=== PATIENT | male | born 1930 | race Caucasian/White ===

== ENCOUNTER 2017-08-04 17:46 | Observation (INO) | payer MEDICARE, MEDICAID ==
[2017-08-04 18:38] LABS: #Eosinphils 0.2 thou/uL (0.0-0.7); #Lymphocytes 0.7 thou/uL (1.20-3.40); #Monocytes 0.8 thou/uL (0.11-0.59); #Neutrophils 5.7 thou/uL (1.40-6.50); %Basophils 0.2 % (0.0-1.0); %Eosinophils 2.9 % (0.0-10.0); %Lymphocytes 9.8 % (21.0-51.0); %Monocytes 10.4 % (0.0-10.0); Hematocrit 38.6 % (42.0-52.0); Mean Platelet Volume 6.3 fL (7.4-10.4); Red Blood Cell (RBC) Count 3.51 mill/uL (4.70-6.10); White Blood Cell (WBC) Count 7.5 thou/uL (4.8-10.8)
[2017-08-04 18:49] LABS: Macrocytosis MODERATE=16-30 cells (100X) (0-5/hpf); Polychromasia SLIGHT = 2-3 cells (100X) (0-2/hpf)
[2017-08-04 19:00] LABS: ALT (SGPT) 26 U/L (8-55); AST (SGOT) 30 U/L (5-34); Alkaline Phosphatase 88 U/L (40-150); Anion Gap 13 mmol/L (10-20); BUN (Urea Nitrogen) 61 mg/dL (8.4-25.7); Bilirubin, Total 0.5 mg/dL (0.2-1.2); CK (CPK) 914 U/L (30-200); Calc. Creatinine Clearance 0 mL/min (70-130); Calcium 9.5 mg/dL (7.8-10.44); Carbon Dioxide 30 mmol/L (23-31); Chloride 98 mmol/L (98-107); Estimated GFR-MDRD 21; Globulin 4.8 g/dL (2.4-3.5); Protein, Total 8.9 g/dL (5.8-8.1)
[2017-08-04 19:00] LABS: Bilirubin Negative (Negative); Blood, Urine Moderate (Negative); Glucose, Urine (Dipstick) Negative (Negative); Ketone, Urine Negative (Negative); Nitrite Positive (Negative); Protein, Urine (Dipstick) 30 mg/dL (Neg-Trace)
[2017-08-04 19:03] LABS: Bacteria/HPF 4+ HPF (None Seen); RBC/HPF 21-50 HPF (0-3); Squamous Epithelial 0-3 HPF (0-3)
[2017-08-04 19:06] LABS: Troponin I 0.028 ng/mL (< 0.028)
[2017-08-04 19:15] LABS: Hyaline Casts/LPF 0-3 HYALINE CAST LPF (0-3 Hyaline)
--- NOTE | 2017-08-04 19:30 | RAD ---
RADIOGRAPH OF CHEST SINGLE VIEW: Comparison: 02-04-17 History: Emergency exam, edema, progressive. FINDINGS: The cardiac silhouette is prominent in size, accentuated by portable technique and is grossly stable to prior exam. There is mild prominence of the pulmonary vasculature. No lobar consolidation, signifi cant effusion or discrete pneumothorax. Vascular calcification and osseous degenerative change presen t. IMPRESSION: Findings which indicate CHF, grossly stable. POS: C
[2017-08-05 01:08] LABS: PTT 30.7 SEC (22.9-36.1); Prothrombin Time 14.4 SEC (12.0-14.7)
[2017-08-05] MEDS ORDERED: Heparin 25,000 units/D5W 500 ML ONE (01:20)
[2017-08-05] MEDS ORDERED: Heparin 5,000 UNITS/ML VIAL ONE ×2 (01:20→01:27)
[2017-08-05 02:40] VITALS: BMI 26.9
[2017-08-05] MEDS ORDERED: Ondansetron ODT 4 MG TAB SL PRN (02:50)
[2017-08-05] MEDS ORDERED: Ondansetron HCl/PF 4 MG/2 ML Vial IVP PRN (02:50)
[2017-08-05] MEDS ORDERED: Sodium Chloride 0.9% 1,000 ML IV SCH (02:50)
[2017-08-05] MEDS ORDERED: Heparin 10,000 UNITS/ 10 ML VIAL SLOW IVP SCH ×2 (03:00→07:45)
[2017-08-05] MEDS ORDERED: Heparin 25,000 units/D5W 500 ML IV SCH ×2 (03:00→07:45)
[2017-08-05] MEDS ORDERED: Dextrose 50% Abboject 50 ML SYRINGE IVP PRN (07:48)
[2017-08-05] MEDS ORDERED: Insulin Regular 300 UNITS/3 ML VIAL SC PRN (07:48)
[2017-08-05] MEDS ORDERED: Dextrose 5% in Water 1,000 ML IV PRN (07:48)
--- NOTE | 2017-08-05 08:00 | ULT ---
PRELIMINARY REPORT/[facility]/EMERGENCY AFTER HOURS PROCEDURE: Addendum created by Ben Guerrero MD on 08/05/2017 12:30 AM Central Time ([place] & [place]) THIS REPORT CONTAINS FINDINGS THAT MAY BE CRITICAL TO PATIENT CARE. The findings were verbally commun icated via telephone conference with KHANG ANTONIO at 12:30 AM DIXON[employer] OPERATOR on 08/05/2017. The findings were ackn owledged and understood. Initial Report created on 08/05/2017 12:29 AM Central Time ([place] & [place]) EXAM: US Duplex Bilateral Lower Extremity Veins CLINICAL HISTORY: 86 years old, male; bilateral lower extremity pain, edema, and redness: HX DVT BLE - per patient TECHNIQUE: Real-time ultrasound scan of the veins of the bilateral lower extremities with color Doppler flow, sp ectral waveform analysis and compression. COMPARISON: No relevant prior studies available. FINDINGS: Right deep veins: Deep venous thrombosis of the right common femoral vein and proximal / mid right reagan perficial femoral vein. Right superficial veins: Unremarkable. No thrombus in the visualized right great saphenous vein. Left deep veins: Deep venous thrombosis of the left common femoral vein and entire left superficial f emoral vein. Left superficial veins: Unremarkable. No thrombus in the visualized left great saphenous vein. Soft tissues: No acute findings. No popliteal cyst. IMPRESSION: 1. Deep venous thrombosis of the right common femoral vein and proximal / mid right superficial femor al vein. 2. Deep venous thrombosis of the left common femoral vein and entire left superficial femoral vein. Thank you for allowing us to participate in the care of your patient. Dictated and Authenticated by: Ben Guerrero MD 08/05/2017 12:29 AM Central Time ([place] & [place]) FINAL REPORT EMERGENCY AFTER HOURS BILATERAL LOWER EXTREMITY VENOUS DOPPLER WITH SPECTRAL ANALYSIS AND COLOR FLOW EVALUATION: Date: 08/04/17 HISTORY: Bilateral lower extremity pain, edema, and redness. FINDINGS: 1. Near occlusive deep vein thrombosis of the right common femoral vein, as well as the proximal and mid right superficial femoral veins. 2. Near occlusive deep vein thrombosis of the left common femoral vein, as well as the entire left s uperficial femoral vein. 3. There is normal flow and lumen compressibility in the bilateral lower extremity popliteal veins a nd posterior tibial veins, as well as visualized superficial veins. Normal lumen compressibility and flow is seen within the distal right superficial femoral vein. 4. Subcutaneous edema bilateral lower extremities. Findings are in agreement with the preliminary report by Manjinder. POS: WAYNE
[2017-08-05] MEDS: Gabapentin 300 MG CAP PO SCH ×2 (08:10→20:50)
[2017-08-05] MEDS: Cefdinir 300 MG CAP PO SCH ×2 (08:10→20:50)
--- NOTE | 2017-08-05 08:17 | HP ---
DATE OF INITIAL OBSERVATION: 08/05/2017 CHIEF COMPLAINT: Bilateral lower extremity deep vein thrombosis, urinary tract infection, and lower extremity cellulitis. HISTORY OF PRESENT ILLNESS: The patient is an 86-year-old [facility] patient at [facility], who was noted to have erythema, heat, and tenderness in his lower extremities along with some mild swelling. He was sent to the emergency room for further evaluation. There he was noted by ultrasound to have bilateral DVT. Because of the recurrent nature of this, an IVC filter was placed in 02/2016. He chao s currently been on 1 aspirin daily 81 mg to prevent this as well as Eliquis 2.5. He cannot take a s tronger anticoagulation due to recurrent hematuria, and his age as well as diminished renal function. At the time of my evaluation, he is an alert, responsive, no complaints of pain. 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 He is dysarthric. He has a history of [place] x2 with coronary artery disease, atrial fibrillation, type 2 diabetes, hyperlipidemia, high cholesterol, hypertension. He has had CHF in the past. 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 He has BPH and dementia. PAST SURGICAL HISTORY: Include the aforementioned IVC filter placement in 02/2016, bilateral eye pricilla mookie, and prostatectomy. He maintains a suprapubic catheter, which also maintains chronic bacterial contamination and chronic UTI/colonization. He also has peripheral neuropathy that has responded wel l to gabapentin, arthritis, constipation. ALLERGIES: He has no known drug allergies. MEDICATIONS ON ADMISSION: Include Namenda 10 mg in the morning and 5 mg in the evening, atorvastatin 20 mg at bedtime, aspirin 81 mg daily, Lasix 40 mg 3 times a day, Levemir 20 units subcutaneous a.m. , Imdur 30 mg daily, aspirin 81 mg daily, Humalog sliding scale, Eliquis 2.5 mg daily, Aldactone 100 mg daily. REVIEW OF SYSTEMS: At the time of observation is difficult to obtain due to the patient's dementia a nd he is very hard of hearing. but there has been no fever, vomiting, diarrhea. HEENT: No complaint s of headache or head trauma. Chest: No complaints of chest pain or shortness of breath. Heart: N o complaints of palpitations or chest pain. Gastrointestinal: As previously mentioned, no evidence of nausea, vomiting, diarrhea. Genitourinary: Has a urostomy and maintains chronic colonization of bacteria, but denies pain there. Musculoskeletal: Normally with 4+ lower extremity edema. This has been improved, but he does have a red rash in his lower legs, CVA. Neurological: He is left with l eft-sided hemiparesis and weakness. PHYSICAL EXAMINATION: At the time of admission, VITAL SIGNS: Blood pressure 134/84, pulse 76, respirations 16, temperature 98.4. Pain scale, I am u nable to rate that since the patient is not cooperative. O2 sat 100%. GENERAL: This is an elderly male, alert, responsive, confused, hard of hearing, and slurre d speech. HEENT: Normocephalic and atraumatic. Pupils equal, round, and reactive to light with arcus senilis bilaterally. TMs, nares are clear. Pharynx is clear with moist membranes. CHEST: Clear to auscultation. HEART: Regular rate and rhythm. ABDOMEN: Soft, nontender, unable to appreciate organomegaly. GENITOURINARY: With urostomy tube draining normally. EXTREMITIES: Showing the beginning of edema mid thigh and going downward with erythema and mild swel ling of the left lower extremity greater than the right, warm to touch, nontender. SKIN: Without other acute lesions. NEUROLOGIC: Cranial nerves are intact. Unable to test gait and cerebellar function. Sensory exam i s grossly intact. Mental status is abnormal with slurred speech, hard of hearing, and illogical comm ents. LABORATORY DATA: The lab work on admission showed sodium 136, potassium 5.4, chloride 98, CO2 is 30, BUN 61, creatinine 2.8 with a GFR 21, glucose 188, calcium 9.5. Liver functions normal. CK 914. C K-MB elevated at 7.4. Troponin I's are negative. BNP slightly elevated at 214. The WBC 7.5, hemogl obin 12.5, hematocrit 38.6, platelets at 242. The urinalysis shows 21-50 rbcs, too numerous to count wbcs. ASSESSMENT: 1. Lower extremity cellulitis, mild. 2. Bilateral deep vein thrombosis per ultrasound and surprising due to patient's bedridden nature, a nticipated with IVC filter placement. 3. Chronic urinary tract infection/colonization. 4. Chronic kidney disease. 5. Dementia. 6. Status post cerebrovascular accident. PLAN: Await cultures on the urine. Continue his aspirin and Eliquis. Begin antibiotics for the low er extremity cellulitis. Serially reevaluate the patient, follow his electrolytes, and probable retu rn to penitentiary soon.
[2017-08-05] MEDS ORDERED: Apixaban 5 MG TAB PO SCH (09:00)
[2017-08-05] MEDS: Insulin Detemir 100 UNITS/ML 20 UNITS in Pre-Filled Syringe 1 EACH SC SCH (10:10)
[2017-08-05] MEDS: Furosemide 100 MG in Sodium Chloride 0.9% 100 ML IVPB SCH (10:10)
[2017-08-05] MEDS: Spironolactone 100 MG TAB PO SCH (10:11)
[2017-08-05] MEDS ORDERED: Atorvastatin Calcium 20 MG TAB PO SCH (21:00)
[2017-08-06] MEDS ORDERED: Dextrose 5% in Water 1,000 ML IV SCH (03:30)
[2017-08-06] MEDS: Furosemide 100 MG in Sodium Chloride 0.9% 100 ML IVPB SCH (04:18)
[2017-08-06 04:31] LABS: #Eosinphils 0.3 thou/uL (0.0-0.7); #Lymphocytes 0.7 thou/uL (1.20-3.40); #Monocytes 0.8 thou/uL (0.11-0.59); #Neutrophils 6.2 thou/uL (1.40-6.50); %Basophils 0.2 % (0.0-1.0); %Eosinophils 3.2 % (0.0-10.0); %Lymphocytes 8.7 % (21.0-51.0); %Monocytes 9.6 % (0.0-10.0); Hematocrit 35.7 % (42.0-52.0); Mean Platelet Volume 6.8 fL (7.4-10.4); Red Blood Cell (RBC) Count 3.26 mill/uL (4.70-6.10); White Blood Cell (WBC) Count 7.9 thou/uL (4.8-10.8)
[2017-08-06 04:43] LABS: Anion Gap 15 mmol/L (10-20); BUN (Urea Nitrogen) 63 mg/dL (8.4-25.7); Calc. Creatinine Clearance 22 mL/min (70-130); Calcium 9.4 mg/dL (7.8-10.44); Carbon Dioxide 26 mmol/L (23-31); Chloride 97 mmol/L (98-107); Cholesterol 93 mg/dl (< 200 Desired); Estimated GFR-MDRD 21; LDL Cholesterol, Calculated 39 mg/dL
[2017-08-06 07:41] VITALS: BP 112/70; TEMP 97.4
[2017-08-06] MEDS: Cefdinir 300 MG CAP PO SCH (07:49)
[2017-08-06] MEDS: Spironolactone 100 MG TAB PO SCH (07:49)
[2017-08-06] MEDS: Gabapentin 300 MG CAP PO SCH (07:50)
[2017-08-06] MEDS: Insulin Detemir 100 UNITS/ML 20 UNITS in Pre-Filled Syringe 1 EACH SC SCH (08:51)
--- NOTE | 2017-09-06 13:34 | EKG ---
Test Reason : Blood Pressure : / mmHG Vent. Rate : 080 BPM Atrial Rate : 066 BPM P-R Int : 000 ms QRS Dur : 142 ms QT Int : 430 ms P-R-T Axes : 000 -56 -13 degrees QTc Int : 495 ms Atrial fibrillation with premature ventricular or aberrantly conducted complexes Left axis deviation Right bundle branch block Possible Lateral infarct , age undetermined Inferior infarct , age undetermined Abnormal ECG Confirmed by SUKHI WATSON ([id number]), editor dictionary FER PERSON ([id number]) on 09/06/2017 1:33:50 PM Referred By: Confirmed By:SUKHI WATSON
== END 2017-08-06 13:30 ==
LOC: ERS 17:46 → T4-B 08-05 00:45
PROVIDERS: ADMIT Specialist; ATTEND Specialist
DX: L03.116 Cellulitis of left lower limb (principal); L03.115 Cellulitis of right lower limb; I82.4Z3 Acute embolism and thrombosis of unspecified deep veins of distal lower extremity, bilateral; N39.0 Urinary tract infection, site not specified; R47.1 Dysarthria and anarthria; I25.2 Old myocardial infarction; I25.10 Atherosclerotic heart disease of native coronary artery without angina pectoris; I13.0 Hypertensive heart and chronic kidney disease with heart failure and stage 1 through stage 4 chronic kidney disease, or unspecified chronic kidney disease; E11.22 Type 2 diabetes mellitus with diabetic chronic kidney disease; N18.9 Chronic kidney disease, unspecified; I50.9 Heart failure, unspecified; F03.90 Unspecified dementia, unspecified severity, without behavioral disturbance, psychotic disturbance, mood disturbance, and anxiety; N40.0 Benign prostatic hyperplasia without lower urinary tract symptoms; I48.91 Unspecified atrial fibrillation; E78.5 Hyperlipidemia, unspecified; Z90.79 Acquired absence of other genital organ(s); Z86.73 Personal history of transient ischemic attack (TIA), and cerebral infarction without residual deficits; Z79.4 Long term (current) use of insulin; Z79.01 Long term (current) use of anticoagulants; Z79.899 Other long term (current) drug therapy
CPT/HCPCS: 51702; 71010; 80048; 80053; 80061; 82550; 82553; 82962; 83880; 84484; 85025 ×2; 85610; 85730; 93005; 93970; 94760; 96365; 96366 ×2; 96367 ×2; 96375; 97139; 99285; G0378; 36415; 36416; 81003; 81015; 96361; 96374; J0696; J1644; J1815; J1940; J7050